=== PATIENT | male | born 1930 | race Caucasian/White ===

== ENCOUNTER 2016-07-16 07:08 | Emergency (ER) | payer OTHER, MEDICARE ==
[2016-07-16 08:44] LABS: RED BLOOD COUNT 4.52 M/UL (4.20-5.50); WHITE BLOOD COUNT 8.1 K/UL (4.5-11.0)
[2016-07-16 09:17] LABS: BUN/CREATININE RATIO 16 (0-10)
== END 2016-07-17 12:53 | disposition home or self-care (01) ==
LOC: ER1 07:08
PROVIDERS: Student in an Organized Health Care Education/Training Program
DX: Z04.1 Encounter for examination and observation following transport accident (principal); R41.0 Disorientation, unspecified; Z87.891 Personal history of nicotine dependence; V49.40XA Driver injured in collision with unspecified motor vehicles in traffic accident, initial encounter; Y93.89 Activity, other specified; Y92.410 Unspecified street and highway as the place of occurrence of the external cause
CPT/HCPCS: 36415; 70450; 71010; 72125; 80053; 80307; 81001; 82550; 82553; 83874; 84484; 85025; 85610; 85730; 93005; 99285; G0480